=== PATIENT | female | born 1990 | race Caucasian/White ===

== ENCOUNTER 2022-07-20 23:41 | Emergency (ER) | payer OTHER ==
[2022-07-21] MEDS ORDERED: Lorazepam 1 MG TAB ONE (01:39)
== END 2022-07-21 02:40 | disposition home or self-care (01) ==
LOC: CSHERS 23:41
DX: M62.838 Other muscle spasm (principal); R11.0 Nausea; R42 Dizziness and giddiness; E10.9 Type 1 diabetes mellitus without complications; F17.210 Nicotine dependence, cigarettes, uncomplicated
CPT/HCPCS: 99283

== ENCOUNTER 2022-07-21 22:43 | Emergency (ER) | payer OTHER ==
[2022-07-21] MEDS ORDERED: Lorazepam 1 MG TAB ONE (23:44)
== END 2022-07-22 00:21 ==
LOC: CSHERS 22:43
DX: R25.2 Cramp and spasm (principal); T50.905A Adverse effect of unspecified drugs, medicaments and biological substances, initial encounter; E10.9 Type 1 diabetes mellitus without complications; F17.210 Nicotine dependence, cigarettes, uncomplicated
CPT/HCPCS: 99283